=== PATIENT | male | born 1980 | race Asian ===

== ENCOUNTER 2017-01-04 19:18 | Emergency (ER) | payer OTHER ==
[~2017-01-04] VITALS: Ht 167.6 cm; Wt 63.5 kg
--- NOTE | 2017-01-04 19:25 | NUR ---
PT A/OX4 BREATHING EFFORTLESSLY ON ROOM AIR, PT STATES HE IS HEARING VOICES AND THE VOICES TOLD HIM TO CUT HIS LEFT WRIST TODAY, PT HAS SUPERFICIAL CUTS TO HIS LEFT WRIST, PT DENIES WANTING TO HURT HIMSELF OR HURT ANYONE ELSE BUT THE VOICES ARE TELLING HIM TO HURT HIMSELF. PT ON MONITOR, IN ROOM, PT FAMILY AT BEDSIDE WILL CONTINUE TO MONITOR.
[2017-01-04] MEDS ORDERED: LORAZEPAM 1 MG TABLET ONE (19:38)
[2017-01-04 19:57] LABS: BASOPHILS # (AUTO) 0.1 /CMM (0.0-0.2); BASOPHILS % (AUTO) 0.6 % (0.0-2.0); EOSINOPHILS % (AUTO) 0.2 % (0.0-6.0); HEMATOCRIT 43 % (39-51); HEMOGLOBIN 14.5 g/dL (13.5-17.5); LYMPHOCYTES # (AUTO) 1.2 /CMM (0.8-4.8); LYMPHOCYTES % (AUTO) 11.9 % (20.0-44.0); MEAN CORPUSCULAR HEMOGLOBIN 28 PG (26.0-33.0); MEAN CORPUSCULAR HGB CONC 34 g/dl (31.0-36.0); MEAN CORPUSCULAR VOLUME 83 fL (80-96); MONOCYTES # (AUTO) 0.6 /CMM (0.1-1.30); MONOCYTES % (AUTO) 6.2 % (2.0-12.0); NEUTROPHILS # (AUTO) 7.8 /CMM (1.8-8.9); NEUTROPHILS % (AUTO) 81.1 % (43.0-81.0); PLATELET COUNT (AUTO) 193 /CMM (150-450); RDW COEFFICIENT OF VARIATION 11.7 (11.5-15.0); RED BLOOD CELL COUNT(AUTO) 5.17 MIL/uL (4.5-6.0); WHITE BLOOD COUNT (AUTO) 9.7 K/uL (4.3-11.0)
[2017-01-04] MEDS ORDERED: LORAZEPAM 1 MG TABLET PO ONE (20:00)
[2017-01-04 20:07] LABS: CALCIUM, SERUM 9.1 mg/dL (8.5-10.1); CARBON DIOXIDE 29 mmol/L (21-32); CHLORIDE 99 mmol/L (98-107); CREATININE 0.9 mg/dL (0.6-1.3); GFR 95 mL/min (>60); GLUCOSE 117 mg/dL (74-106); POTASSIUM 3.6 mmol/L (3.5-5.1); SODIUM SERUM 135 mmol/L (136-145); UREA NITROGEN, BLOOD 9 mg/dL (7-18)
[2017-01-04 20:13] LABS: ALANINE AMINOTRANSFERASE 34 U/L (12-78); ALBUMIN 4.2 g/dL (3.4-5.0); ALKALINE PHOSPHATASE 83 U/L (46-116); ASPARTATE AMINOTRANSFERASE 24 U/L (15-37); BILIRUBIN,DIRECT 0.1 mg/dL (0.0-0.2); BILIRUBIN,TOTAL 0.4 mg/dL (0.2-1.0); TOTAL PROTEIN, SERUM 7.8 g/dL (6.4-8.2)
[2017-01-04 20:14] LABS: ACETAMINOPHEN < 2 ug/ml (10-30); ALCOHOL, BLOOD < 3 mg/dL (0-0)
--- NOTE | 2017-01-04 21:05 | NUR ---
PT IS RELAXING IN THE ROOM, PT GIVEN GOOD AND SOMETHING TO DRINK, PT ON MONITOR, WILL CONTINUE TO MONITOR.
[2017-01-04 21:20] LABS: APPEARANCE,URINE Clear (CLEAR); BILIRUBIN,URINE Negative (NEGATIVE); BLOOD, URINE Trace-lysed Ery/uL (NEGATIVE); COLOR,URINE Yellow (YELLOW); KETONES,URINE 40 (NEGATIVE); LEUKOCYTE ESTERASE ,URINE Negative (NEGATIVE); NITRITE, URINE Negative (NEGATIVE); PROTEIN,URINE Negative (NEGATIVE); UGLUCOSE Negative (NEGATIVE); UROBILINOGEN,URINE 0.2 EU/dL (0.2)
[2017-01-04 21:29] LABS: CANNABINOID, URINE NEGATIVE (NEGATIVE); PHENCYCLIDINE SCREEN,URINE NEGATIVE (NEGATIVE)
[2017-01-04 21:33] LABS: ADD URINE CULTURE NO; BACTERIA,URINE Rare /HPF (None Seen); SQUAMOUS EPITHELIAL CELL,UR Few /HPF (None Seen); WBC,URINE 0-2 /HPF (0-3)
--- NOTE | 2017-01-04 23:33 | NUR ---
PT IN BED IN NO APPARENT DISTRESS, PT ON MONITOR, MD MADE AWARE WILL CONTINUE TO MONITOR.
--- NOTE | 2017-01-05 01:33 | NUR ---
PT IN BED IN NO APPARENT DISTRESS, PT STATES HE IS DOING OK AND IS IN NO PAIN, MD MADE AWARE WILL CONTINUE TO MONITOR.
--- NOTE | 2017-01-05 03:10 | NUR ---
PT IN BED SLEEPING IN NO APPARENT DISTRESS, PT ON MONITOR VSS WILL CONTINUE TO MONITOR.
[2017-01-05] MEDS ORDERED: diphenhydrAMINE HCL 25 MG CAPSULE PO ONE (04:00)
[2017-01-05] MEDS ORDERED: diphenhydrAMINE HCL 50 MG CAPSULE ONE (04:01)
--- NOTE | 2017-01-05 05:47 | NUR ---
CALLED [facility], SPOKE WITH MEGAN. NO BEDS AVAILABLE, SHE SUGGESTS TO CHECK BACK AT [phone] FOR BED STATUS UPDATE
[2017-01-05 07:08] VITALS: BP 114/84
--- NOTE | 2017-01-05 07:08 | NUR ---
Patient discharged to home in stable condition. Written and verbal after care instructions given. Patient verbalizes understanding of instruction.
== END 2017-01-05 07:08 | disposition home or self-care (01) ==
LOC: ER 19:22
DX: R45.851 Suicidal ideations (principal); F29 Unspecified psychosis not due to a substance or known physiological condition
CPT/HCPCS: 36415; 80048; 80076; 80305; 80329; 81001; 85025; 99284; A4606; A6402; G0480 ×2; Q0163; 81000-TC; G6039-TC; Z7610